=== PATIENT | male | born 1960 | race Caucasian/White ===

== ENCOUNTER 2019-10-15 09:26 | Outpatient (CLI) | payer MEDICARE, MEDICAID, SELFPAY | END 2019-10-15 09:27 | disposition home or self-care (01) | LOC: ANHAUDIO 09:29 | PROVIDERS: PCP Family Medicine; Visit Provider Family Medicine | DX: H90.3 Sensorineural hearing loss, bilateral (principal) | CPT/HCPCS: 92557; 92567 ==

== ENCOUNTER 2020-10-20 07:05 | Outpatient (CLI) | payer MEDICARE, MEDICAID, SELFPAY | END 2020-10-20 07:06 | disposition home or self-care (01) | PROVIDERS: PCP Family Medicine; Visit Provider Family Medicine | DX: H90.3 Sensorineural hearing loss, bilateral (principal) | CPT/HCPCS: 92557; 92567 ==

== ENCOUNTER 2021-11-12 08:53 | Outpatient (CLI) | payer MEDICARE, MEDICAID, SELFPAY | END 2021-11-12 08:54 | disposition home or self-care (01) | LOC: ANHAUDIO 08:55 | PROVIDERS: PCP Family Medicine; Visit Provider Family Medicine | DX: Z01.10 Encounter for examination of ears and hearing without abnormal findings (principal) | CPT/HCPCS: 99199 ==

== ENCOUNTER 2021-11-16 08:31 | Outpatient (CLI) | payer MEDICARE, MEDICAID, SELFPAY | END 2021-11-16 08:32 | disposition home or self-care (01) | LOC: ANHAUDIO 08:35 | PROVIDERS: PCP Family Medicine; Visit Provider Family Medicine | DX: Z01.10 Encounter for examination of ears and hearing without abnormal findings (principal) | CPT/HCPCS: 92557; 92567 ==

== ENCOUNTER 2022-11-24 08:57 | Outpatient (CLI) | payer MEDICARE, MEDICAID, SELFPAY | END 2022-11-24 08:58 | disposition home or self-care (01) | LOC: ANHAUDIO 08:58 | PROVIDERS: PCP Family Medicine; Visit Provider Family Medicine | DX: H90.3 Sensorineural hearing loss, bilateral (principal) | CPT/HCPCS: 92557; 92567 ==

== ENCOUNTER 2023-12-05 08:03 | Outpatient (CLI) | payer MEDICARE, MEDICAID, SELFPAY | END 2023-12-05 08:04 | disposition home or self-care (01) | LOC: ANHAUDASC 08:04 | PROVIDERS: PCP Family Medicine; Visit Provider Family Medicine | DX: Z01.10 Encounter for examination of ears and hearing without abnormal findings (principal); H90.3 Sensorineural hearing loss, bilateral | CPT/HCPCS: 92557; 92567 ==

== ENCOUNTER 2024-12-06 10:09 | Outpatient (CLI) | payer MEDICARE, MEDICAID, SELFPAY ==
--- OUTSIDE RECORDS SUMMARY | 2024-12-06 11:19 | XMS_ITS | Data Portability ---
Author Organization [facility], [address] [place] [address] [place] ([place]) Address [address] [place] [id number] Assessment No assessment recorded. Plan of Treatment Reminders Order Date Submit Date Provider Last Modified By Organization Details Last Modified Time Details Appointments Establish ed Patient 10.EST 2024 08:20A M Dr. Ej Long Not available Not available Not available Lab None recorded. Referral None recorded. Procedures None recorded. Surgeries None recorded. Imaging None recorded. Medication Orders None recorded. Patient TargetsNo targets recorded. Patient InstructionsNo instructions recorded. Reason for Referral None Reported. Results Created Date Observation Date Name Description Value Unit Range Abnormal Flag Note LastModifiedBy Organization Detail LastModifiedTime Result Notes None recorded. Problems Name Problem SNOMED Code Status Onset Date Resolution Date Notes Provider Name and Address Organization Details Recorded Time Carcinoma of prostate 371874584 Active 2023 Ange Wilde [facility] 4 17:08:30 Prostate specific antigen above reference range 995277604 Active 2024 Savanah salinas om [facility] 5 10:40:05 Lower urinary tract symptoms due to benign prostatic hypertrophy 5951154812623 1 Active 2024 Talia Smith [facility] 5 16:15:32 Problem Notes None recorded. Medical Equipment None Reported. Allergies Allergen ID Allergen Name Allergen Category Reaction Reaction Severity Criticality Documentation Date Start Date Code Code System Note Provider Name and Address Organization Details Recorded Time 397221 Product containin g penicilli n (product) medicatio n Not available Not available Not available 09/12/20232013 09569 8001 SNOMED Not Available Not Available Not Available Medications Name Sig Start Date Stop Date Status Note LastModified by Organization Details LastModified Time ciprofloxacin 500 mg tablet Take 1 tablet every 12 hours by oral route for 3 days. 2023 active Not Available Not Available Not Avai lable tamsulosin 0.4 mg capsule Take 1 capsule twice a day by oral route as directed for 90 days. 2024 active Not Available Not Available Not Avai lable finasteride 5 mg tablet Take 1 tablet every day by oral route as directed for 90 days, for BPH. 2024 active Not Available Not Available Not Avai lable Vitals Date Recorded Body height Body mass index (BMI) Body weight Heart rate Oxygen saturation Oxygen saturation in Arterial blood by Pulse oximetry Systolic blood pressure Diastolic blood pressure Provider Name and Address Organization Details Last Updated DateTime 5 157.48 cm 33.5 kg/m2 36186.4 g 80 /min 99 % 99 % 124 mm[Hg] 68 mm[Hg] [facility] 5 10:12:25 Social History None recorded. Functional Status None recorded. Mental Status None recorded. Family History Nothing Reported. Medical History No medical history recorded. Past Encounters Encounter ID Performer Location Encounter Start Date Encounter Closed Date Diagnosis/Indication Diagnosis SNOMED-CT Code Diagnosis ICD10 Code Diagnosis Note [id number] Wilma Segovia, SHIP/REC/DOC CONTROL, FORM PRESSER [address] [facility] ([place]) [address] [facility] [address] [place] [address] 08/16/2024 09:43:21 08/17/2024 18:06:53 Carcinoma of prostate 862066322 C61 Health Concerns Section Related Observation LastModified by Organization Detai ls LastModified Time None Recorded Concern Status LastModified by Organization Details LastModified Time None Recorded Advance Directives Directive None Recorded Payers Encounter Date Sequence Insurance Name Policy Number Policy Dugan Covered Member ID Dugan Member ID Guarantor Name 08/16/2024 1 [place] ([place] Aravind Clark [id number] Aravind Clark 08/16/2024 2 [place] [employer] Aravind Clark [id number] Aravind Clark Notes Date Note Type Note Provider Name and Address Organization Details Recorded Time 08/16/2024 text/html Chief Complaint: Aravind Clark is a 64-year-old male who presents today for follow-up. 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 Present in 1 of 6 cores involving less than 15% of the specimen. Right prostate biopsy benign. This was pathology from his biopsy in December 2021. They were unable to do Polaris testing.He is on active surveillance.He had a repeat prostate biopsy June 08, 2024 that was benign.PSA 0.5 August 07, 2024. He is accompanied by his caregiver. History of Present Illness: Today the patient states he is doing well. He denies dysuria or gross hematuria. His bowels are moving. He has never smoked. His father had prostate cancer. Review of SystemsPatient denies nausea, vomiting, shortness of breath, or chest pain Vitals, medical problems, medications, and allergies are noted below. Physical exam:Patient is alert and cooperative. In no acute distress. Skin warm and dry.Extraocular movements are intact.Head normocephalic.Normal hearingTrachea midline.Respirations deep and regular.Abdomen soft.Genitalia: Normal appearing male genitalia. Circumcised phallus. There are no penile lesions or drainage. Testicles descended bilaterally CONI: Normal rectal sphincter tone. 30 g prostate smooth.There is no peripheral edema.Gait is normal and without defect. Assessment & Plan: Prostate cancer -I reviewed recent PSA results with the patient and his caregiver. Recommend PSA October 2024 and follow-up in the office in [address] Long with another PSA. Wilma Segovia, SHIP/REC/DOC CONTROL, FORM PRESSER [address] [place] [address], [phone], [facility] 08/19/2024 12:31:48
--- OUTSIDE RECORDS SUMMARY | 2024-12-06 11:19 | XMS_ITS | Encounter Summary ---
Author Organization [facility] Address [address] [place] [address] Care Team Providers Care Cut Out Stitcher Name Role Phone Wisam Hodge MD Primary Care Provider [phone] Ej Shukla MD Unavailable [phone] Encounter Details Date Type Department Care Team (Late st Contact Info) Description 01/20/2019 Abstract [facility] [address] [place] [address] , Generic Conversion, Social History Tobacco Use Types Packs/Day Years Used Date Smoking Tobacco: Never Smokeless Tobacco: Never Alcohol Use Standard Drinks/Week Comments No 0 (1 standard drink = 0.6 oz pur e alcohol) Sex and Gender Information Value Date Recorded Sex Assigned at Not on file 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
--- OUTSIDE RECORDS SUMMARY | 2024-12-06 11:19 | XMS_ITS | Clinical Summary ---
Author Organization [facility] Address [facility] [place] [address] Care Team Providers Care Printing Machine Operator Tape Rules Name Role Phone Wisam Hodge MD Primary Care Provider [phone] Ej Shukla MD Unavailable [phone] Allergies Active Allergy Reactions Criticality Noted Date Comments Penicillins Unknown 11/02/2017 Medications lamoTRIgine extended release 200 MG tablet Take 200 mg by mouth. Take as directed Active baclofen 10 MG tablet Take 10 mg by mouth 2 (two) times daily. Active omeprazole 20 MG capsule Take 20 mg by mouth daily. Active risperiDONE 1 MG tablet Take 1 mg by mouth 2 (two) times daily. Active sertraline 100 MG tablet Take 100 mg by mouth daily. Active simethicone 80 MG chewable tablet Chew 80 mg by mouth 2 (two) times a day. Active tamsulosin 0.4 MG Cap Take 0.4 mg by mouth daily. Active doxycycline hyclate 100 MG capsule 11/08/2018 Active finasteride 5 MG tablet 04/29/2018 Active OLANZapine 10 MG tablet 06/07/2018 Active OLANZapine 10 MG tablet 11/27/2018 Active GAVILYTE-G 236 g solution 09/18/2018 Active sulfamethoxazol e-trimethoprim 800-160 MG tablet 09/06/2018 Active sulfamethoxazol e-trimethoprim 800-160 MG tablet 09/06/2018 Active triamcinolone 0.1 % cream 01/30/2018 Active triamcinolone 0.1 % ointment 05/23/2018 Acti ve lamoTRIgine 200 MG tablet 11/27/2018 Active omeprazole 20 MG capsule 03/29/2018 Active tamsulosin 0.4 MG Cap 03/29/2018 Active Active Problems Problem Noted Date Diagnosed Date Toe pain 09/19/2018 Resolved Problems Problem Noted Date Diagnosed Date Resolved Date Encounter for preventive health examination 09/19/2018 04/25/2020 Family History Medical History Relation Comments CHF Mother Relation Status Comments Mother Social History Tobacco Use Types Packs/Day Years Used Date Smoking Tobacco: Never Smokeless Tobacco: Never Alcohol Use Standard Drinks/Week Comments No 0 (1 standard drink = 0.6 oz pur e alcohol) Sex and Gender Information Value Date Recorded Sex Assigned at Not on file 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 Gender Identity Not on file Sexual Orientation Not on file Occupation Industry Job Start Date Job End Date Diabled Not on file Not on file Not on file Last Filed Vital Signs Vital Sign Reading Time Taken Comments Blood Pressure 115/73 12/21/2018 9:20 AM CDT Pulse - - Temperature - - Respiratory Rate - - Oxygen Saturation - - Inhaled Oxygen Concentration - - Weight 86.2 kg (190 lb) 04/20/2019 8:10 AM CDT Height 177.8 cm (5' 10 ) 04/20/2019 8:10 AM CDT Body Mass Index 27.26 04/20/2019 8:10 AM CDT Plan of Treatment Health Maintenance Due Date Last Done Comments Colorectal Cancer Screening Colonoscopy (10 Years) 1958 Hepatitis C 1976 DTaP, Tdap and Td Vaccines ( 1 - Tdap) 1977 Pneumococcal Vaccine: 50+ Ye ars (1 of 1 - PCV) 2008 Zoster Vaccines (1 of 2) 2008 Annual Medicare Wellness Visit 2023 COVID-19 Vaccine (1 - 2023-2 5 season) 2024 RSV Immunization or 60+ Years (1 - 1-dose 75+ series) 2033 Meningococcal B Vaccine Aged Out No l onger eligible based on patient's age to complete this topic Meningococcal Vaccine Aged Out No filiberto carmencita eligible based on patient's age to complete this topic RSV Immunizations Under 20 Months Aged Out No longer eligible based on patient's age to complete this topic Insurance MEDICARE [place] [address] Care Teams Printing Machine Operator Tape Rules Relationship Specialty Start Date End Date Wisam Hodge MD PCP - General FAMILY PRACTICE 11/01/17 Ej Shukla MD [place] Anchorman CARDIOVASCULAR DISEASE 11/01/17
--- OUTSIDE RECORDS SUMMARY | 2024-12-06 11:19 | XMS_ITS | Encounter Summary ---
Author Organization [facility] Address [facility] [place] [address] Care Team Providers Care Greenhouse Transplanter Name Role Phone Wisam Hodge MD Primary Care Provider [phone] Ej Shukla MD Unavailable [phone] Encounter Details Date Type Department Care Team (Latest Contact Info) Description 06/20/2018 Abstract [facility] , Armen De La Vega MD Social History Tobacco Use Types Packs/Day Years Used Date Smoking Tobacco: Never Smokeless Tobacco: Never Alcohol Use Standard Drinks/Week Comments No 0 (1 standard drink = 0.6 oz pur e alcohol) Sex and Gender Information Value Date Recorded Sex Assigned at Not on file 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
--- OUTSIDE RECORDS SUMMARY | 2024-12-06 11:19 | XMS_ITS | Encounter Summary ---
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
== END 2024-12-06 10:10 | disposition home or self-care (01) ==
LOC: ANHAUDIO 10:09
PROVIDERS: PCP Family Medicine; Visit Provider Family Medicine
DX: Z01.10 Encounter for examination of ears and hearing without abnormal findings (principal); H90.3 Sensorineural hearing loss, bilateral
CPT/HCPCS: 92557; 92567